=== PATIENT | female | born 1990 | race Two or more races ===

== ENCOUNTER 2016-10-21 12:48 | Emergency (ER) | payer OTHER ==
[~2016-10-21] VITALS: Ht 162.6 cm; Wt 66.7 kg
[2016-10-21 12:53] VITALS: BP 131/73
--- NOTE | 2016-10-21 13:16 | NUR ---
RADIOLOGY AT BEDSIDE FOR L WRIST XRAY.
== END 2016-10-21 14:17 | disposition home or self-care (01) ==
LOC: ER 12:51
DX: M65.4 Radial styloid tenosynovitis [de Quervain] (principal)
CPT/HCPCS: 73110; A4606; Z7610